=== PATIENT | male | born 1960 | race Caucasian/White ===

== ENCOUNTER 2020-06-20 08:44 | Day surgery (SDC) | payer BC, SELFPAY ==
[2020-06-20] MEDS ORDERED: ceFAZolin SODIUM 1 GM in D5W 50 ML IV ONE (09:00)
[2020-06-20] MEDS ORDERED: CEFAZOLIN 1 GM IVPB PREMIX 50 ML IV ONE (09:08)
[2020-06-20] MEDS ORDERED: SIMETHICONE 40 MG/0.6 ML ML ONE (09:19)
[2020-06-20 09:24] LABS: PROTHROMBIN TIME 10.4 SECS (9.5-12.5)
[2020-06-20] MEDS: fentaNYL CITRATE/PF 100 MCG/2 ML AMP ONE ×3 (09:33→09:37)
[2020-06-20] MEDS: MIDAZOLAM HCL 5 MG/5 ML VIAL ONE ×4 (09:33→09:48)
[2020-06-20 09:55] VITALS: BP_SYST 114
[2020-06-20] MEDS ORDERED: fentaNYL CITRATE/PF 100 MCG/2 ML AMP ONE (09:57)
== END 2020-06-20 11:05 | disposition home or self-care (01) ==
LOC: SDS 08:44 → SMU 08:46 → SDS 11:05
PROVIDERS: ATTEND Internal Medicine
DX: R13.10 Dysphagia, unspecified (principal); K31.7 Polyp of stomach and duodenum; I10 Essential (primary) hypertension; Z85.819 Personal history of malignant neoplasm of unspecified site of lip, oral cavity, and pharynx; G47.33 Obstructive sleep apnea (adult) (pediatric); Z79.899 Other long term (current) drug therapy; Z79.01 Long term (current) use of anticoagulants; Z20.828 Contact with and (suspected) exposure to other viral communicable diseases
CPT/HCPCS: 36415; 43239; 43246; 85610; 85730; 88305; 88312; 88313; 99152; G0378; J0690; J2250; J3010; U0003; J7060